=== PATIENT | female | born 1975 | race Caucasian/White ===

== ENCOUNTER 2023-12-08 03:52 | Emergency (ER) | payer BC ==
[2023-12-08 03:59] VITALS: TEMP 97.6
[2023-12-08] MEDS: AMOXIC-POT CLAV 875-125MG 1 EACH TAB PO STA (04:49)
[2023-12-08] MEDS: HYDROmorphone 1 MG/ML 1 ML SYRINGE IM STA (04:50)
[2023-12-08] MEDS: ONDANSETRON ODT 4 MG TAB PO STA (04:59)
--- NOTE | 2023-12-08 05:15 | ED ---
ENT HPI - General Chief complaint: Dental/Oral Stated complaint: Allergic Reaction, Difficulty Breathing Time Seen by Provider: 12/08/23 04:00 Source: patient Mode of arrival: ambulatory Limitations: no limitations - History of Present Illness Initial comments: 48-year-old female presents to emergency department with dental pain. Patient has poor dentition. She has a known cracked tooth. Patient states that she is awaiting to see a dentist but developed acute dental pain with suspected abscess. She was placed on amoxicillin however states that her symptoms or not improving. She denies any difficulty swallowing. No fevers. No other alleviating, precipitating or modifying factors - Related Data Previous Rx's Medication Instructions Recorded Amoxic-Pot Clav 875-125Mg 1 tab PO BID 10 Days #20 tab 12/08/23 [Augmentin 875-125] HYDROcodone/APAP 5-325MG [[place] 1 tab PO Q6HR PRN 3 Days #12 tab 12/08/23 5-325] Allergies Allergy/AdvReac Type Severity Reaction Status Date / Time Sulfa (Sulfonamide Allergy Rash/Hives Verified 12/08/23 03:57 Antibiotics) Review of Systems ROS Statement: Those systems with pertinent positive or pertinent negative responses have been documented in the HPI. ROS Other: All systems not noted in ROS Statement are negative. Past Medical History Past Medical History: Asthma Additional Past Medical History / Comment(s): IBS, spastic colon History of Any Multi-Drug Resistant Organisms: None Reported Past Surgical History: Tubal Ligation Past Psychological History: No Psychological Hx Reported Smoking Status: Current every day smoker Past Alcohol Use History: Rare Past Drug Use History: Marijuana General Exam Limitations: no limitations General appearance: alert, in no apparent distress Head exam: Present: atraumatic, normocephalic, normal inspection Eye exam: Present: normal appearance, PERRL, EOMI. Absent: scleral icterus, conjunctival injection, periorbital swelling ENT exam: Present: mucous membranes moist, other (Patient has a dental abscess located over tooth #7. The tooth is cracked) Course Vital Signs 12/08/23 12/08/23 03:53 05:26 Temperature 97.6 F Pulse Rate 129 H 105 H Respiratory 22 20 Rate Blood Pressure 132/99 137/93 O2 Sat by Pulse 97 100 Oximetry Medical Decision Making - Medical Decision Making Was pt. sent in by a medical professional or institution (Dr., PA, COLLEGE TEACHER, urgent care, hospital, or [facility]...) When possible be specific @ -No Did you speak to anyone other than the patient for history (EMS, parent, family, police, friend...)? What history was obtained from this source @ -I spoke with the patient's significant other Did you review nursing and triage notes (agree or disagree)? Why? @ -I reviewed and agree with nursing and triage notes Were old charts reviewed (outside hosp., previous admission, EMS record, old EKG, old radiological studies, urgent care reports/EKG's, [facility] records)? Report findings @ -No old charts were reviewed Differential Diagnosis (chest pain, altered mental status, abdominal pain women, abdominal pain men, vaginal bleeding, weakness, fever, dyspnea, syncope, headache, dizziness, GI bleed, back pain, seizure, CVA, palpatations, mental health, musculoskeletal)? @ -Dental abscess, dentalgia, Ludwigs EKG interpreted by me (3pts min.). @ -Not done X-rays interpreted by me (1pt min.). @ -None done CT interpreted by me (1pt min.). @ -None done U/S interpreted by me (1pt. min.). @ -None done What testing was considered but not performed or refused? (CT, X-rays, U/S, lab s)? Why? @ -None What meds were considered but not given or refused? Why? @ -None Did you discuss the management of the patient with other professionals (professionals i.e. TABATHA Gonzalez, COLLEGE TEACHER, lab, RT, psych nurse, social work therapist, samples and repairs preparer, teacher, neighborhood conservation officer, shoe caser)? Give summary @ -No Was smoking cessation discussed for >3mins.? @ -No Was critical care preformed (if so, how long)? @ -No Were there social determinants of health that impacted care today? How? (Homelessness, low income, unemployed, alcoholism, drug addiction, transportation, low edu. Level, literacy, decrease access to med. care, [facility], rehab)? @ -No Was there de-escalation of care discussed even if they declined (Discuss DNR or withdrawal of care, Hospice)? DNR status @ -No What co-morbidities impacted this encounter? (DM, HTN, Smoking, COPD, CAD, Cancer, CVA, ARF, Chemo, Hep., AIDS, mental health diagnosis, sleep apnea, morbid obesity)? @ -None Was patient admitted / discharged? Hospital course, mention meds given and route, prescriptions, significant lab abnormalities, going to OR and other pertinent info. @ -Upon arrival patient seen and evaluated in room 31. Thorough history and physical exam was performed. Patient given an injection of pain medications. I did perform needle incision and drainage of the dental abscess. I did receive back 2 cc of pustular drainage. At this time the patient will be increased to Augmentin. Patient is to follow-up with her dentist for definitive treatment and return for any new or worsening symptoms Undiagnosed new problem with uncertain prognosis? @ -No Drug Therapy requiring intensive monitoring for toxicity (Heparin, Nitro, Insulin, Cardizem)? @ -No Were any procedures done? @ -Needle incision and drainage of dental abscess Diagnosis/symptom? @ -Acute periapical abscess, dental caries Acute, or Chronic, or Acute on Chronic? @ -Acute Uncomplicated (without systemic symptoms) or Complicated (systemic symptoms)? @ -Uncomplicated Side effects of treatment? @ -No Exacerbation, Progression, or Severe Exacerbation? @ -No Poses a threat to life or bodily function? How? (Chest pain, [place], [place], pneumonia, PE, COPD, DKA, ARF, appy, cholecystitis, CVA, Diverticulitis, Homicidal, Suicidal, threat to staff... and all critical care pts) @ -No Disposition Clinical Impression: Dental abscess Disposition: HOME SELF-CARE Condition: Stable Instructions (If sedation given, give patient instructions): Dental Abscess (ED) Additional Instructions: Stop taking the amoxicillin and start taking the antibiotic that I prescribed. Use the pain medications as directed. Use salt water gargles 4 times a day. Fo llow-up with a dentist to have the tooth extracted Prescriptions: Amoxic-Pot Clav 875-125Mg [Augmentin 875-125] 1 tab PO BID 10 Days #20 tab HYDROcodone/APAP 5-325MG [[place] 5-325] 1 tab PO Q6HR PRN 3 Days #12 tab PRN Reason: Severe Breakthrough Pain Is patient prescribed a controlled substance at d/c from ED?: Yes When asked, does pt state using other controlled substances?: No If prescribed controlled substance>3 days was MAPS reviewed?: Prescribed <3 Days If opioid is for acute pain is fill amount 7 days or less?: Yes Referrals: None,Stated [Primary Care Provider] - 1-2 days Time of Disposition: 05:15
[2023-12-08 05:28] VITALS: BP 137/93; PULSE 105; RESP 20
== END 2023-12-08 05:26 | disposition home or self-care (01) ==
LOC: EC 03:52
DX: K04.7 Periapical abscess without sinus (principal); K02.9 Dental caries, unspecified; F17.200 Nicotine dependence, unspecified, uncomplicated; F12.90 Cannabis use, unspecified, uncomplicated; Z88.2 Allergy status to sulfonamides
CPT/HCPCS: 99282; 96372; 41800; J1170

== ENCOUNTER 2024-02-23 14:27 | Emergency (ER) | payer BC ==
[2024-02-23] MEDS: DIPH,PERTUS(ACELL)TETVAC-LF 0.5 ML VIAL IM ONE (15:28)
[2024-02-23] MEDS: TOPICAL SKIN ADHESIVE 1 EACH AMP TOPICAL ONE (15:29)
[2024-02-23 15:35] VITALS: RESP 18
[2024-02-23] MEDS: IPRATROPIUM-ALBUTEROL 3 ML NEB INHALATION STA (15:58)
[2024-02-23] MEDS: ALBUTEROL HFA INHALER INHALATION STA (15:59)
--- NOTE | 2024-02-23 16:06 | ED ---
Wound/Laceration HPI - General Chief Complaint: Wound/Laceration Stated Complaint: laceration on face,covid test Time Seen by Provider: 02/23/24 14:33 Source: patient, RN notes reviewed Mode of arrival: ambulatory Limitations: no limitations - History of Present Illness Initial Comments: This is a 48-year-old female who presents to the emergency department requesting a COVID test as well as a laceration to her face. Patient states that she has had coworkers test positive for COVID and has been exposed to them. Over the last couple of days she has had coughing, congestion, and some difficulty breathing. Reports a history of asthma. Using her albuterol inhaler 1-2 times a day without much relief. Does not have a nebulizer. Additionally, she cut the left corner of her eyebrow on a shelf earlier today causing a small wound. Unsure when her last tetanus vaccine was. Denies loss of consciousness. Not taking any blood thinners. - Related Data Previous Rx's Medication Instructions Recorded Amoxic-Pot Clav 875-125Mg 1 tab PO BID 10 Days #20 tab 12/08/23 [Augmentin 875-125] HYDROcodone/APAP 5-325MG [Ray 1 tab PO Q6HR PRN 3 Days #12 tab 12/08/23 5-325] Albuterol Sulfate [Albuterol 1 - 2 puff PO Q4-6H PRN #8.5 gm 02/23/24 Sulfate Hfa] Benzonatate [Tessalon Perle] 200 mg PO Q8H PRN #30 capsule 02/23/24 predniSONE 50 mg PO DAILY 5 Days #5 tablet 02/23/24 Allergies Allergy/AdvReac Type Severity Reaction Status Date / Time erythromycin base Allergy Rash/Hives Verified 02/23/24 14:31 Sulfa (Sulfonamide Allergy Rash/Hives Verified 12/08/23 03:57 Antibiotics) vancomycin Allergy Rash/Hives Verified 02/23/24 14:31 Review of Systems ROS Statement: Those systems with pertinent positive or pertinent negative responses have been documented in the HPI. ROS Other: All systems not noted in ROS Statement are negative. Past Medical History Past Medical History: Asthma Additional Past Medical History / Comment(s): IBS, spastic colon History of Any Multi-Drug Resistant Organisms: None Reported Past Surgical History: Tubal Ligation Past Psychological History: No Psychological Hx Reported Smoking Status: Current every day smoker Past Alcohol Use History: Rare Past Drug Use History: Marijuana General Exam Limitations: no limitations General appearance: alert, in no apparent distress Head exam: Present: other (2 cm laceration to the lateral most aspect of her left eyebrow. No active bleeding) Eye exam: Present: normal appearance, PERRL, EOMI. Absent: scleral icterus, conjunctival injection, periorbital swelling Respiratory exam: Present: wheezes, decreased breath sounds, prolonged expiratory Cardiovascular Exam: Present: regular rate, normal rhythm, normal heart sounds. Absent: systolic murmur, diastolic murmur, rubs, gallop, clicks Neurological exam: Present: alert, oriented X3, CN II-XII intact Psychiatric exam: Present: normal affect, normal mood Skin exam: Present: warm, dry, intact, normal color. Absent: rash Course Vital Signs 02/23/24 02/23/24 02/23/24 14:28 15:33 16:25 Temperature 98.6 F 98.3 F 98.1 F Pulse Rate 120 H 96 86 Respiratory 20 18 18 Rate Blood Pressure 121/74 138/92 140/68 O2 Sat by Pulse 99 96 97 Oximetry Procedures - Laceration Laceration #1 Consent Obtained: verbal consent Indication: laceration Site: face Size (cm): 2 Description: linear Depth: simple, single layer Type of Sutures: other (Exofin) Medical Decision Making - Medical Decision Making This is a 48-year-old female who presents to the emergency department for coughing, congestion, and a laceration. Was pt. sent in by a medical professional or institution? @ -No Did you speak to anyone other than the patient for history? @ -No Did you review nursing and triage notes? @ -Yes, and I agree, it is accurate with regards to the patient's symptoms. Were old charts reviewed? @ -No Differential Diagnosis? @ -Differential Cough: Influenza, Covid, RSV, croup, allergic rhinitis, GERD, pneumonia, bronchitis, COPD, viral pharyngitis, streptococcal pharyngitis, this is not meant to be an all-inclusive list. EKG interpreted by me (3pts min.)? @ -Not obtained X-rays interpreted by me (1pt min.)? @ -Not obtained CT interpreted by me (1pt min.)? @ -Not obtained U/S interpreted by me (1pt. min.)? @ -Not obtained What testing was considered but not performed? (CT, X-rays, U/S, labs)? Why? @ -Chest x-ray, however patient declined. What meds were considered but not given? Why? @ -DuoNeb breathing treatment, however patient refused. Did you discuss the management of the patient with other professionals? @ -No Did you reconcile home meds? @ -No Was smoking cessation discussed for >3mins.? @ -I discussed smoking cessation for greater than 3 minutes. The risk of smoking were discussed with the patient including but not limited to risks of cancer, stroke, coronary artery disease and COPD. Also discussed with patient were multiple methods of quitting smoking. Lastly we discussed the financial cost of smoking. Was critical care preformed (if so, how long)? @ -No Were there social determinants of health that impacted care today? How? (Homelessness, low income, unemployed, alcoholism, drug addiction, transportation, low edu. Level, literacy, decrease access to med. care, alf, rehab)? @ -No Was there de-escalation of care discussed even if they declined? (Discuss DNR or withdrawal of care, Hospice)? @ -No What co-morbidities impacted this encounter? (DM, HTN, Smoking, COPD, CAD, Cancer, CVA, Hep., AIDS, mental health diagnosis, sleep apnea, morbid obesity)? @ -Asthma, smoking Was patient admitted / discharged? @ -Discharged. COVID, influenza, and RSV testing negative. Patient did have wheezing on exam, but refused further workup including a chest x-ray or a DuoNeb breathing treatment. Will treat patient for asthma exacerbation. Prescription for prednisone and refill on albuterol inhaler provided. Prescription for Tessalon Perles provided for the cough. The laceration was cleansed and repaired with Exofin. Advised follow-up with her PCP for reevaluation. Case discussed with ED attending Dr. Allen. Return precautions reviewed in depth, the patient is instructed to return to the emergency department with any new, worsening, or concerning symptoms. Patient verbalized understanding. Undiagnosed new problem with uncertain prognosis? @ -None Drug Therapy requiring intensive monitoring for toxicity (Heparin, Nitro, Insulin, Cardizem)? @ -None Were any procedures done? @ -Laceration repair with exofin Diagnosis/symptom? @ -Asthma exacerbation Acute, or Chronic, or Acute on Chronic? @ -Acute on chronic Uncomplicated (without systemic symptoms) or Complicated (systemic symptoms)? @ -Uncomplicated Side effects of treatment? @ -None Exacerbation, Progression, or Severe Exacerbation] @ -Exacerbation Poses a threat to life or bodily function? @ -No Diagnosis/symptom? @ -Laceration Acute, or Chronic, or Acute on Chronic? @ -Acute Uncomplicated (without systemic symptoms) or Complicated (systemic symptoms)? @ -Uncomplicated Side effects of treatment? @ -None Exacerbation, Progression, or Severe Exacerbation] @ -Not applicable Poses a threat to life or bodily function? @ -No - Lab Data Lab Results 02/23/24 Range/Units 15:01 Influenza Type A (PCR) Not Detected (Not Detectd) Influenza Type B (PCR) Not Detected (Not Detectd) RSV (PCR) Not Detected (Not Detectd) SARS-CoV-2 (PCR) Not Detected (Not Detectd) Disposition Clinical Impression: Laceration, Asthma exacerbation, Nicotine dependence Disposition: HOME SELF-CARE Instructions (If sedation given, give patient instructions): Skin Adhesive Care (ED) Additional Instructions: Return to the emergency department with any new, worsening, or concerning sympto ms. Keep the area dry, do not apply topical medications, and do not rub, scratch, or pick at the wound. The adhesive will naturally fall off within 5-10 days. Take the prednisone daily for 5 days. You can use the cough medication up to every 8 hours. Use the albuterol inhaler every 4-6 hours. Follow up with your primary care provider in 1-2 days. Prescriptions: Albuterol Sulfate [Albuterol Sulfate Hfa] 1 - 2 puff PO Q4-6H PRN #8.5 gm PRN Reason: Shortness Of Breath predniSONE 50 mg PO DAILY 5 Days #5 tablet Benzonatate [Tessalon Perle] 200 mg PO Q8H PRN #30 capsule PRN Reason: Cough Is patient prescribed a controlled substance at d/c from ED?: No Referrals: None,Stated [Primary Care Provider] - 1-2 days Time of Disposition: 16:05
[2024-02-23 16:27] VITALS: BP 140/68; PULSE 86; TEMP 98.1
== END 2024-02-23 16:30 | disposition home or self-care (01) ==
LOC: EC 14:27
DX: S01.112A Laceration without foreign body of left eyelid and periocular area, initial encounter (principal); J45.901 Unspecified asthma with (acute) exacerbation; F17.200 Nicotine dependence, unspecified, uncomplicated; Z11.52 Encounter for screening for COVID-19; Z88.1 Allergy status to other antibiotic agents; Z88.2 Allergy status to sulfonamides; Z23 Encounter for immunization; W26.8XXA Contact with other sharp object(s), not elsewhere classified, initial encounter
CPT/HCPCS: 87636; 90471; 90715; 99283